=== PATIENT | female | born 1930 | race Caucasian/White ===

== ENCOUNTER 2017-12-28 21:05 | Inpatient (IN) ==
[2017-12-29] MEDS ORDERED: traMADol 50 MG TABLET PO PRN (01:09)
[2017-12-29] MEDS ORDERED: Naloxone 0.4 MG/ML INJ IVP PRN (01:09)
[2017-12-29] MEDS: Acetaminophen 325 MG TABLET PO PRN ×2 (01:27→21:02)
[2017-12-29] MEDS: 0.9 % Sodium Chloride 1,000 ML IVC SCH ×2 (01:28→16:04)
--- NOTE | 2017-12-29 03:03 | Internal Med History&Physical ---
Date of Encounter: 12/28/17 Time of Encounter: 23:25 Assessment and Plan (1) Infection of prosthetic left knee joint Current visit: Yes Status: Suspected 1. Will proceed with CT of LLE to evaluate internal hardware and abscess extension. 2. Consult orthopedics. 3. I called and verified with [facility] that wound cultures have been collected. 4. Will continue IV Vancomycin and Zosyn. 5. Follow cultures and clinically. Qualifiers: Encounter type: initial encounter Qualified Code(s): T84.54XA - Infection and inflammatory reaction due to internal left knee prosthesis, initial encounter (2) Toe infection Current visit: Yes Status: Chronic 1. Follow cultures as obtained at [facility]. 2. Consult Podiatry. (3) Abscess of skin or subcutaneous tissue Current visit: No Status: Acute 1. S/P I&D at [facility]. 2. Follow cultures and continue antibiotics as above. Qualifiers: Site of cutaneous abscess of extremity: lower extremity Laterality: left Qualified Code(s): L02.416 - Cutaneous abscess of left lower limb (4) DVT prophylaxis Current visit: Yes Status: Acute 1. Heparin SQ. Internal Medicine - H&P: HPI Chief complaint: left leg abscess; right infection Admitted From: Emergency Dept Plans for Post Hospital Care: Home History of present illness: Ms. Rosario is a 87 year old female who presents in transfer from [facility] ER for concerns of left leg abscess and right toe injury/ possible osteomyelitis. Patient lives at home with her daughter and has been bedbound for the last 3-4 years. Her daughter and family members help take care of patient, and her daughter noticed a red, warm, and fluctuant area over the left lateral aspect of her left leg just above the knee. This started about 2 days ago, and it became red and warm and tender. She therefore brought her to the ER today where she was found to have an abscess clinically. She had incision and drainage and packing performed in the ER there. According to ER note, she had marisel pus come out of the abscess and it was sent for culture. She also was noted to have a wound along her second and third toes on the right foot with some mild superficial drainage. These were cultured as well. She had imaging performed of her left leg and right foot. Imaging showed some loosening of the screws in her left leg concerning for possible prosthetic device infection. She was then transferred here to [facility] for ongoing care and orthopedic consultation. Upon my assessment of the patient, patient and daughter confirm the above history. Prior to 2 days ago, she did not have any redness or swelling or tenderness along her leg. She has had a chronic irritation of her right toes as noted above. Despite her bedbound state, she has a good quality of life. She has been bedbound since her femur fracture and repair several years ago. She denies any recent fevers, chills, night sweats, vomiting, or diarrhea. According to patient and her daughter, she has been healthy except for bedbound state. She has not seen a physician in over 2 years. Past Med Surg Social Fam HX - Past Medical History Attestation: Yes The following information was validated with the patient. Source: patient, old records reviewed Medical history: dementia, hyperlipidemia, hypertension, valvular heart disease Psychiatric history: depression - Past Surgical History Surgical History: knee replacement, orthopedic, other, MURRAY/BSO - Social History Smoking Status: Never smoker Smokeless Tobacco Status: No Alcohol use: none Drug use: none Current living situation: Home, With Family Activity Level: Bed bound Recent Out of Country Travel Within the Last 8 Weeks: No - Family History Mother Living Status: Brother Living Status: Internal Medicine - H&P: Meds No Known Home Drugs 12/28/17 [History] 3 Allergy/AdvReac Type Severity Reaction Status Date / Time No Known Allergies Allergy Verified 12/28/17 17:55 - Constitutional Constitutional: no chills, no fever(s), no night sweats - EENT Eyes: no blurry vision, no change in vision Ears: no ear pain, no tinnitus Nose, mouth and throat: no sinus pain, no sinus pressure, no sore throat - Cardiovascular Cardiovascular ROS IM: no chest pain, no diaphoresis, no dyspnea, no palpitations, no syncope - Respiratory Respiratory: no cough, no hemoptysis, no chest congestion, no excessive phlegm production, no change in phlegm color - Gastrointestinal Gastrointestinal: no abdominal pain, no diarrhea, no hematemesis, no hematochezia, no melena, no vomiting - Genitourinary Genitourinary: no dysuria, no flank pain, no hematuria - Musculoskeletal Musculoskeletal ROS IM: arthralgias, joint swelling (left knee), limited range of motion - Integumentary Integumentary IM: erythema (left lateral leg just above knee) - Neurological Neurological ROS: no dizziness, no focal weakness, no frequent falls, no headache(s) - Psychiatric Psychiatric: no anxiety, no depression - Endocrine Endocrine IM: no polydipsia, no polyuria - Hematologic/Lymphatic Hematologic/Lymphatic: no easy bruising, no lymphadenopathy - Allergic/Immunologic Allergic/Immunologic: no GI upset with certain foods - Constitutional Vitals: Temp Pulse Resp BP Pulse Ox 98.0 F 105 17 149/79 96 12/28/17 22:47 12/28/17 22:47 12/28/17 22:47 12/28/17 22:47 12/28/17 22:47 General appearance: Present: cooperative, A&O X 3, pleasant, no acute distress, answers questions appropriately - Head Head exam: Present: normal inspection - Eye Eye exam: Present: EOMI, normal appearance, PERRL. Absent: scleral icterus Pupils: Present: normal accommodation - ENT ENT exam: Present: mucous membranes dry, normal exam - Neck Neck exam general surgery: Present: full ROM, supple. Absent: tenderness, nuchal rigidity - Respiratory Respiratory exam: Present: CTAB. Absent: chest wall tenderness, rales, respiratory distress, rhonchi, wheezes - Cardiovascular Cardiovascular exam: Present: RRR, +S1, +S2, systolic murmur (grade 2 -3 ). Absent: diastolic murmur - GI/Abdominal GI/Abdominal exam: Present: normal bowel sounds, soft. Absent: guarding, hepatomegaly, rebound, splenomegaly, tenderness - Extremities Exam Extremities exam: Present: joint swelling (left knee), tenderness (left laterall abscess s/p I&D -- just above knee), warm, radial pulses palpable and symmetrical. Absent: calf tenderness, full ROM (limited ROM left knee) Additional comments: right 2nd/3rd toe with chronic irritation/skin breakdown, and mild drainage - Back Exam Back exam: Absent: CVA tenderness (L), CVA tenderness (R) - Neurological Exam Neurological exam: Present: alert, CN II-XII intact, oriented X3, strengths equal and symetr throughout Additional comments: moves both lower extremities easily but weak and bedbound - Psychiatric Psychiatric exam: Present: normal affect, normal mood - Skin Skin exam: Present: dry, erythema (left leg abscess and right toe wounds as above), warm Internal Med - H&P Results - Labs Labs: I reviewed her labs from [facility] include the following: WBC 8.1 Hemoglobin 9.3 Hematocrit 21.5 Platelets 251 PT 12.2 INR 1.1 PTT 34.5 Sodium 139 Potassium 3.7 Chloride 105 Carbon dioxide 24 BUN 34 Creatinine 1.71 - Diagnostic Studies Other Images Status: image reviewed by me (left femur and knee xrays viewed with notation of reports)
[2017-12-29 04:56] LABS: Basophils % 0.3 %; Eosinophils # 0.1 K/mcL (0.0-0.6); Eosinophils % 0.8 %; Hematocrit 26.3 % (35.3-44.9); Hemoglobin 8.2 g/dL (11.5-15.4); Immature Granulocytes % 0.6 % (0-4); Lymphocytes # 2.1 K/mcL (0.6-4.6); Lymphocytes % 32.4 %; Mean Corpuscular HGB Conc 31.2 g/dL (31.6-35.5); Mean Corpuscular Hemoglobin 29.2 pg (28.0-33.3); Mean Corpuscular Volume 93.6 fL (83.0-100.0); Mean Platelet Volume 9.8 fL (9.4-12.4); Monocytes # 0.5 K/mcL (0.0-1.3); Monocytes % 7.1 %; Neutrophils # 3.8 K/mcL (1.6-8.9); Nucleated Red Blood Cells 0.3 /100 WBC (0); Platelet Count 215 K/mcL (140-400); Red Blood Count 2.81 M/mcL (3.82-4.97); Red Cell Distribution Width 13.6 % (11.5-14.5); Segmented Neutrophils % 58.8 %
[2017-12-29 05:17] LABS: Alanine Aminotransferase < 3 Units/L (7-52); Albumin 3.2 g/dL (3.5-5.7); Alkaline Phosphatase 72 Units/L (34-104); Aspartate Amino Transferase 8 Units/L (13-39); BUN/Creatinine Ratio 21 (6-26); Bilirubin,Total 0.3 mg/dL (0.3-1.0); Blood Urea Nitrogen 32 mg/dL (8-23); Calcium 8.5 mg/dL (8.6-10.3); Carbon Dioxide 22 mEq/L (23-29); Chloride 109 mEq/L (98-107); Globulin 3.1 g/dL (2.4-3.5); Glucose 95 mg/dL (70-105); Magnesium 1.9 mg/dL (1.6-2.6); Osmolality,Calculated 293 (280-300); Potassium 3.5 mEq/L (3.5-5.1); Sodium 138 mEq/L (136-145); Total Protein 6.3 g/dL (6.4-8.9); eGFR For Non-African Americans 32 (> 60)
[2017-12-29] MEDS: *HR* Heparin 5,000 UNIT/ML VIAL SQ SCH ×2 (05:19→16:11)
[2017-12-29 05:45] LABS: INR 1.2; Prothrombin Time 13.2 Seconds (9.4-12.1)
[2017-12-29] MEDS ORDERED: Piperacillin/Tazobactam 3.375 GM in 0.9 % Sodium Chloride Mini Bag 100 ML IVPB SCH (08:00)
--- NOTE | 2017-12-29 14:58 | Internal Med Progress Note ---
Date of Encounter: 12/29/17 Time of Encounter: 14:56 - Assessment and plan (1) Infection of prosthetic left knee joint Current Visit: Yes Status: Suspected Assessment and plan: hx remote left TKA with subsequent periprosthetic fracture and revision. Presented to OSH with red, swollen left knee abscess. S/p I&D at OSH. Left knee CT with possible abscess with small foci of soft tissue gas. WBC 6K, lactic acid normal (1.1 at OSH). Afebrile, does not appear acute or toxic. Continue IV Zosyn, Vanco. Blood cultures drawn at outside hospital pending. Ortho consulted Qualifiers: Encounter type: initial encounter Qualified Code(s): T84.54XA - Infection and inflammatory reaction due to internal left knee prosthesis, initial encounter (2) Acute kidney injury Current Visit: No Status: Acute Assessment and plan: Cr 1.7 at OSH. Baseline unknown. Slowly improving with IV fluids. Monitor repeat renal function closely while on Vanco and Zosyn. (3) Anemia Current Visit: No Status: Chronic Assessment and plan: Hgb 9.1 at OSH. Dropped to 8.2 on arrival. No active bleeding. Baseline Hgb unknown. Possibly dilutional component with IV fluids. Monitor H&H, check occult stool. Qualifiers: Anemia type: unspecified type Qualified Code(s): D64.9 - Anemia, unspecified (4) DVT prophylaxis Current Visit: Yes Status: Acute Assessment and plan: heparin - Subjective Interval history: Seen and examined at bedside. Patient is new to me. Information obtained from chart review and patient report. Says she is sleepy and tired and has some mild pain to left knee but overall stable. No fevers or chills. - Constitutional Vitals: Temp Pulse Resp BP Pulse Ox 97.7 F 82 17 95/54 99 12/29/17 12:22 12/29/17 12:22 12/29/17 12:22 12/29/17 12:22 12/29/17 12:22 General appearance: Present: cooperative, A&O X 3, pleasant, no acute distress, answers questions appropriately - Head Head exam: Present: atraumatic, normocephalic - Eye Eye exam: Present: PERRL, conjuntiva pink, sclera anicteric Pupils: Present: PERRL - Neck Neck exam general surgery: Present: supple, trachea midline. Absent: lymphadenopathy - Respiratory Respiratory exam: Present: CTAB. Absent: accessory muscle use, rales, rhonchi, wheezes - Cardiovascular Cardiovascular exam: Present: RRR, +S1, +S2. Absent: diastolic murmur, gallop, rubs, systolic murmur - GI/Abdominal GI/Abdominal exam: Present: normal bowel sounds, soft, no peritoneal signs. Absent: distended, tenderness - Extremities Exam Extremities exam: Present: warm, radial pulses palpable and symmetrical. Absent : calf tenderness, cyanotic, pedal edema - Neurological Exam Neurological exam: Present: CN II-XII intact, oriented X3, no focal deficits. Absent: pronater drift, facial droop, speech deficit - Skin Skin exam: Present: dry, intact - Expanded Skin Exam Full body front and back image: 1 - s/p I&D site to the left lateral knee. Is an area with surrounding erythema. Draining serosanguineous fluid Internal Medicine: Result - Labs CBC & Chem 7: 12/29/17 04:31 12/29/17 04:31 Labs: Short CBC 12/29/17 Range/Units 04:31 WBC 6.4 (4.3-11.1) K/mcL Hgb 8.2 L (11.5-15.4) g/dL Hct 26.3 L (35.3-44.9) % Plt Count 215 (140-400) K/mcL Neutrophils # 3.8 (1.6-8.9) K/mcL BMP 12/29/17 04:31 Sodium 138 Potassium 3.5 Chloride 109 H Carbon Dioxide 22 L BUN 32 H Creatinine 1.54 H Glucose 95 Calcium 8.5 L Liver Function 12/29/17 Range/Units 04:31 Total Bilirubin 0.3 (0.3-1.0) mg/dL AST 8 L (13-39) Units/L ALT < 3 L (7-52) Units/L Alkaline Phosphatase 72 (34-104) Units/L Albumin 3.2 L (3.5-5.7) g/dL - ABG Interpretation ABG results: PT/INR, D-dimer PT 13.2 Seconds (9.4-12.1) H 12/29/17 04:31 - Impressions Impressions Lower Extremity CT 12/29/17 03:22 IMPRESSION: Significantly limited exam due to streak artifact and lack of IV contrast. There is question of a subcutaneous abscess extending cephalad from the soft tissue defect about the lateral aspect of the knee. There are small foci of soft tissue gas. This potential abscess measures 4.6 x 2.7 x 2.0 cm. Remote distal left femur fracture status post ORIF. No significant bony fusion at the distal aspect of the fracture site. D/ / 12/29/2017 09:48:14 Marcelo Falcon MD / jaya Interpreting Provider: Marcelo Falcon MD Consult Discharge Plan - Plan Referrals: Fernie Melgar Jr, MD [Primary Care Provider] -
[2017-12-29] MEDS: Piperacillin/Tazobactam 3.375 GM in 0.9 % Sodium Chloride Mini Bag 100 ML IVPB SCH (20:45)
[2017-12-30] MEDS: *HR* Heparin 5,000 UNIT/ML VIAL SQ SCH ×2 (05:11→17:41)
[2017-12-30 06:38] LABS: Hematocrit 24.8 % (35.3-44.9); Hemoglobin 7.4 g/dL (11.5-15.4); Mean Corpuscular HGB Conc 29.8 g/dL (31.6-35.5); Mean Corpuscular Hemoglobin 28.5 pg (28.0-33.3); Mean Corpuscular Volume 95.4 fL (83.0-100.0); Platelet Count 190 K/mcL (140-400); Red Cell Distribution Width 13.9 % (11.5-14.5)
[2017-12-30 08:37] LABS: Calcium 8.3 mg/dL (8.6-10.3); Potassium 3.8 mEq/L (3.5-5.1)
[2017-12-30] MEDS: Piperacillin/Tazobactam 3.375 GM in 0.9 % Sodium Chloride Mini Bag 100 ML IVPB SCH ×2 (11:03→20:21)
--- NOTE | 2017-12-30 16:08 | Internal Med Progress Note ---
Date of Encounter: 12/30/17 Time of Encounter: 11:00 - Assessment and plan (1) Infection of prosthetic left knee joint Current Visit: Yes Status: Suspected Assessment and plan: 1 patient was found to have an abscess to left leg she had marisel pus coming out of the abscess which was I&D and sent for culture imaging showed some loosening of screws concerning for possible prosthetic device infection -subcutaneous abscess she is initiated on vancomycin and Zosyn at this time pending sensitivities 2 orthopedics has been consult- I did speak with Dr Wanda escalona, via telephone, he stated that he had reviewed this case with his colleague Dr Alexis who performed the revision surgery , and since the patient was non ambulatory and bedridden, they will forego the risk of surgical procedure at this time and manage medically with long-term antibiotics. 3 consult PICC team for PICC line placement Qualifiers: Encounter type: initial encounter Qualified Code(s): T84.54XA - Infection and inflammatory reaction due to internal left knee prosthesis, initial encounter (2) Toe infection Current Visit: Yes Status: Chronic Assessment and plan: 1 toe has been cultured at [facility] x-ray shows no osteomyelitis 2 did consult podiatry-spoke with Dr. Beth (3) Abscess of skin or subcutaneous tissue Current Visit: No Status: Acute Assessment and plan: Status post I&D at [facility] Continue with current antibiotics pending sensitivities Qualifiers: Site of cutaneous abscess of extremity: lower extremity Laterality: left Qualified Code(s): L02.416 - Cutaneous abscess of left lower limb (4) DVT prophylaxis Current Visit: No Status: Acute Assessment and plan: Heparin subcutaneous - Time Spent With Patient less than 15 minutes - Subjective Interval history: This patient is new to me I reviewed the patient's medical record, I did speak with Dr Wanda escalona, via telephone, he stated that he had reviewed this case with his colleague Dr Alexis who performed the revision surgery , and since the patient was non ambulatory and bedridden, they will forego the risk of surgical procedure at this time and manage medically with long-term antibiotics. I did discuss this as well as the placement of PICC line with the patient she did verbalize understanding. I examined the patient at bedside she does have a reddened second toe on her right foot denies any pain at this time. She is otherwise hemodynamically stable. - Constitutional Vitals: Temp Pulse Resp BP Pulse Ox 98.0 F 89 17 91/60 99 12/30/17 12:02 12/30/17 12:02 12/30/17 12:02 12/30/17 12:02 12/30/17 12:02 General appearance: Present: cooperative, A&O X 3, pleasant, no acute distress, answers questions appropriately - Head Head exam: Present: atraumatic, normocephalic - Eye Eye exam: Present: PERRL, conjuntiva pink, sclera anicteric Pupils: Present: PERRL - Neck Neck exam general surgery: Present: supple, trachea midline. Absent: lymphadenopathy - Respiratory Respiratory exam: Present: CTAB. Absent: accessory muscle use, rales, rhonchi, wheezes - Cardiovascular Cardiovascular exam: Present: RRR, +S1, +S2. Absent: diastolic murmur, gallop, rubs, systolic murmur - GI/Abdominal GI/Abdominal exam: Present: normal bowel sounds, soft, no peritoneal signs. Absent: distended, tenderness - Extremities Exam Extremities exam: Present: warm, radial pulses palpable and symmetrical. Absent : calf tenderness, cyanotic, pedal edema Additional comments: Left knee with swelling I&D site at the distal aspect of her left thigh just above the level of the knee there is packing in the wound serosanguineous fluid drainage No redness noted - Neurological Exam Neurological exam: Present: CN II-XII intact, oriented X3, no focal deficits. Absent: pronater drift, facial droop, speech deficit - Skin Skin exam: Present: dry, intact Internal Medicine: Result - Labs CBC & Chem 7: 12/30/17 06:00 12/30/17 06:00 Labs: Short CBC 12/30/17 Range/Units 06:00 WBC 4.7 (4.3-11.1) K/mcL Hgb 7.4 L (11.5-15.4) g/dL Hct 24.8 L (35.3-44.9) % Plt Count 190 (140-400) K/mcL BMP 12/30/17 06:00 Sodium 141 Potassium 3.8 Chloride 114 H Carbon Dioxide 19 L BUN 32 H Creatinine 1.92 H Glucose 82 Calcium 8.3 L - ABG Interpretation ABG results: PT/INR, D-dimer PT 13.2 Seconds (9.4-12.1) H 12/29/17 04:31 - Impressions Impressions Echocardiogram 12/29/17 01:15 Impressions: LVEF 60-65%. Normal left ventricular size and systolic function. There is evidence of mild diastolic dysfunction of the left ventricle. Normal right ventricular size and function. Moderate aortic stenosis. Mild mitral regurgitation. Left Ventricular Wall Motion: Rest Echo Findings All wall segments showed normal motion. Findings: Study Quality * Technically adequate exam. ECG Findings * Normal sinus rhythm. Left Ventricle * LVEF 60-65%. * Normal LV chamber size, wall thickness and function. * Mild left ventricular diastolic dysfunction. Right Ventricle * Normal right ventricular structure and function. Left Atrium * Normal left atrial size. Right Atrium * Normal right atrial size. Interatrial Septum * Interatrial septum not well evaluated. Aortic Valve * Trileaflet aortic valve. * Moderately calcified aortic valve leaflets. * Moderate aortic stenosis. * Trace aortic regurgitation. Mitral Valve * Normal mitral valve structure. * Mild mitral regurgitation. Tricuspid Valve * Normal tricuspid valve structure. * Mild tricuspid regurgitation. Pulmonic Valve * Pulmonic valve not well visualized. * Trace pulmonic regurgitation. Aorta * Normally sized aortic root. Pericardium * The pericardium appears normal. IVC * Normal IVC dimensions and inspiratory collapse. Consult Discharge Plan - Plan Referrals: Fernie Melgar Jr, MD [Primary Care Provider] -
--- NOTE | 2017-12-30 19:59 | Orthopedics Progress Note ---
Date of Encounter: 12/30/17 Time of Encounter: 19:53 Subjective Principal diagnosis: Infected nonunion left periprosthetic femur fracture Interval history: 12/30/2015. Patient is seen in follow-up. No new complaints. She denies fevers shakes chills etc. Vital signs are stable. Patient is afebrile. Leg is improved. No drainage from incision and drainage site, packing was removed. White blood cell count remains normal, slightly low at 4.7. Hemoglobin has dropped to 7.4. BUN and creatinine are mildly elevated. GFR is about 25. Culture results are not available, the cultures were obtained in the [facility] ER and were just received today by microbiology. Hopefully preliminary report will be available tomorrow. Impression: Infected periprosthetic fracture left distal femur Recommendation: Formal consultation was dictated yesterday, unfortunately it was assigned to the [facility] emergency room visit. I had a long discussion today with the patient and family about the current findings. I also had a discussion about the patient's care with Dr. Kvng Alexis. We are in agreement that a continued conservative course at least initially, is most appropriate. A PICC line was ordered, it will be placed when we get closer to the time of discharge as long as there is IV access. We will need to fine tune the antibiotics once we have an organism and antibiotic sensitivities. We will treat with 6 weeks of IV antibiotics. This will probably followed by suppressive oral dose permanently. We will order baseline sedimentation rate and CRP. Objective Vital signs: Vital Signs Temp Pulse Resp BP Pulse Ox 12/30/17 19:17 98.7 F 100 16 125/81 94 12/30/17 16:24 98.4 F 98 18 111/70 98 12/30/17 12:02 98.0 F 89 17 91/60 99 12/30/17 07:58 97.7 F 88 16 106/71 98 12/30/17 03:08 97.7 F 75 16 94/60 97 12/29/17 22:19 98.3 F 94 15 106/69 97 12/29/17 19:56 91/60 Intake and Output 12/30/17 12/30/17 12/30/17 07:59 15:59 23:59 Intake Total 1350 / 1350 120 / 120 Balance 1350 / 1350 120 / 120 Intake: IV Fluids 1350 / 1350 0.9 % Sodium Chloride 1,000 ML 1000 / 1000 @ 100 mls/hr IVC .Q10H [facility] Rx#: [id number] Zosyn 3.375 GM In 0.9 % Sodium 100 / 100 Chloride (Mini-Bag +) 100 ML @ 25 mls/hr IVPB Q12H [facility] Rx#: [id number] Vancocin 750 MG In 0.9 % Sodium 250 / 250 Chloride 250 ML @ 125 mls/hr IVPB ONCE ONE Rx#:[id number] Oral 120 / 120 Other: Meal Dinner Percent of Meal Consumed 50% Stool Size Moderate Stool Consistency loose soft Stool Color Brown # Urine Diapers 1 1 Weight 59.693 kg Patient Weight 12/30/17 23:59 Weight 59.693 kg - Labs CBC & BMP: 12/30/17 06:00 12/30/17 06:00 Labs: Abnormal lab results RBC 2.60 M/mcL (3.82-4.97) L 12/30/17 06:00 Hgb 7.4 g/dL (11.5-15.4) L 12/30/17 06:00 Hct 24.8 % (35.3-44.9) L 12/30/17 06:00 MCHC 29.8 g/dL (31.6-35.5) L 12/30/17 06:00 Nucleated RBCs/100 WBC 0.3 /100 WBC (0) H 12/29/17 04:31 PT 13.2 Seconds (9.4-12.1) H 12/29/17 04:31 Chloride 114 mEq/L (98-107) H 12/30/17 06:00 Carbon Dioxide 19 mEq/L (23-29) L 12/30/17 06:00 BUN 32 mg/dL (8-23) H 12/30/17 06:00 Creatinine 1.92 mg/dL (0.60-1.20) H 12/30/17 06:00 Est GFR ( Amer) 30 (> 60) L 12/30/17 06:00 Est GFR (Non-Af Amer) 25 (> 60) L 12/30/17 06:00 Calcium 8.3 mg/dL (8.6-10.3) L 12/30/17 06:00 AST 8 Units/L (13-39) L 12/29/17 04:31 ALT < 3 Units/L (7-52) L 12/29/17 04:31 Serum Total Protein 6.3 g/dL (6.4-8.9) L 12/29/17 04:31 Albumin 3.2 g/dL (3.5-5.7) L 12/29/17 04:31 Albumin/Globulin Ratio 1.0 (1.1-2.2) L 12/29/17 04:31 Consult Discharge Plan - Plan Referrals: Fernie Melgar Jr, MD [Primary Care Provider] -
[2017-12-30] MEDS: Acetaminophen 325 MG TABLET PO PRN (20:21)
[2017-12-31 05:23] LABS: Basophils % 0.6 %; Eosinophils # 0.1 K/mcL (0.0-0.6); Eosinophils % 2.3 %; Hematocrit 24.7 % (35.3-44.9); Hemoglobin 7.4 g/dL (11.5-15.4); Immature Granulocytes % 0.4 % (0-4); Mean Corpuscular Hemoglobin 28.5 pg (28.0-33.3); Mean Platelet Volume 9.9 fL (9.4-12.4); Monocytes # 0.4 K/mcL (0.0-1.3); Monocytes % 8.1 %; Neutrophils # 2.3 K/mcL (1.6-8.9); Platelet Count 187 K/mcL (140-400); Red Cell Distribution Width 13.7 % (11.5-14.5); Segmented Neutrophils % 46.6 %
[2017-12-31] MEDS: *HR* Heparin 5,000 UNIT/ML VIAL SQ SCH ×2 (05:54→17:38)
[2017-12-31 06:00] LABS: Calcium 8.7 mg/dL (8.6-10.3); Potassium 4.1 mEq/L (3.5-5.1)
[2017-12-31] MEDS ORDERED: Vancomycin 500 MG in 0.9 % Sodium Chloride Mini Bag 100 ML IVPB ONE (06:00)
[2017-12-31] MEDS: Lactobacillus 1 EACH CAP.SPRINK PO SCH (08:49)
[2017-12-31] MEDS: Piperacillin/Tazobactam 3.375 GM in 0.9 % Sodium Chloride Mini Bag 100 ML IVPB SCH ×2 (08:49→19:30)
--- NOTE | 2017-12-31 13:18 | Podiatry Consult Note ---
Date of Encounter: 12/31/17 Time of Encounter: 12:00 Assessment and Plan (1) Onychomycosis Current visit: Yes Status: Acute Severe onychomycosis noted to nails #2 through #5 bilaterally with carolina horn growth due to length. Patient cannot recall when nails were last trimmed Nails curve is causing ulceration to toe #2 of right foot Will plan for bedside debridement of nails tomorrow. Explained to patient. Verbalized understanding (2) Toe infection Current visit: Yes Status: Chronic There is a small superficial ulceration to the dorsal aspect of the IP joint of the right foot 0.2cmx0.2cm and to the lateral aspect of toe near the DIP joint 0.3cmx0.2cm . The distal wound is directly related to curvature of toe nail #3 of right foot. There is no current drainage noted to wound of the IP joint. Scant yellow slough tissue noted to wound. Minimal surrounding erythema. No warmth. No fluctuance. There is pain with palpation. No concern of abscess formation. Will plan for debridement of nails tomorrow to remove offending nail #3 from skin of toe #2 Continue current antibiotics, per notes, there was drainage noted to ulceration of toe #2 which was cultured at [place] - titrate antibiotics as needed if any bacterial growth is noted Will continue to monitor. History of Present Illness HPI: Ms. Rosario is a 87 year old female with minimal known health history. Patient is bedbound at home following a femur fracture. Patient has not been seen by a doctor in over 2 years. Patient was admitted for evaluation of possible infection of prosthetic implant of left knee. It was also reported by daughter that there was irritation to toe #2 of right foot. Patient states she is unsure how long sore has been to her toe. States she has pain to toe intermittently. Cultures were obtained from toe at [place] per reports. Xrays were obtained and negative for OM. Patient is currently receiving IV antibiotics for treatment of left knee infection. Patient states she is unsure if she has ever had professional nail care and cannot recall last time nails were trimmed. Past Med Surg Social Fam HX - Past Medical History Medical history: dementia, hyperlipidemia, hypertension, valvular heart disease Psychiatric history: depression - Past Surgical History Surgical History: knee replacement, orthopedic, other, MURRAY/BSO - Social History Smoking Status: Never smoker Smokeless Tobacco Status: No Alcohol use: none Drug use: none - Family History Mother Living Status: Brother Living Status: Medications and Allergies Acetaminophen [Tylenol] 500 mg PO Q6HR PRN 12/29/17 [History] 3 Allergy/AdvReac Type Severity Reaction Status Date / Time vancomycin AdvReac Redness of Verified 12/29/17 16:29 Skin All Systems Reviewed: The remainder of the systems were reviewed and are negative Physical Exam - Constitutional Vitals: Temp Pulse Resp BP Pulse Ox 97.6 F 71 15 100/55 96 12/31/17 11:21 12/31/17 11:21 12/31/17 11:21 12/31/17 11:21 12/31/17 11:21 Exam: Awake alert and oriented Pulses palpable DP/PT Warm toes to tibia Cap refill <3 seconds Sensation intact with light touch No calf pain with manual compression Poor hygiene noted, severe dry skin without evidence of cracking or ulceration Debris noted between and under toes and dry crusting skin to plantar aspect of feet Severe onychomycosis noted to nails #1 through #5 bilaterally with carolina horn curve of nails due to length Nail #1 right is causing pressure to skin of toe #2 and nail #3 is causing pressure and skin breakdown of toe #2. There is a small superficial ulceration to the dorsal aspect of the IP joint of the right foot 0.2cmx0.2cm , once slough tissue removed there is a very small area of bone exposure at the level of the IP joint. This wound appears related to pressure being caused by nail #1 as well as severe arthritic rigidity of toes #1 #2 #3 There is a second ulceration to the lateral aspect of toe near the DIP joint 0.3cmx0.2cm . The distal wound is directly related to curvature of toe nail #3 of right foot. There is no current drainage noted to wound of the IP joint. Scant yellow slough tissue noted to wound. Minimal surrounding erythema. No warmth. No fluctuance. There is pain with palpation. No concern of abscess formation. Results - Labs Result Diagrams: 01/01/18 04:50 01/01/18 04:50 Labs: Abnormal lab results RBC 2.60 M/mcL (3.82-4.97) L 12/31/17 04:41 Hgb 7.4 g/dL (11.5-15.4) L 12/31/17 04:41 Hct 24.7 % (35.3-44.9) L 12/31/17 04:41 MCHC 30.0 g/dL (31.6-35.5) L 12/31/17 04:41 Nucleated RBCs/100 WBC 0.3 /100 WBC (0) H 12/29/17 04:31 ESR 43 mm/hr (0-15) H 12/30/17 06:00 PT 13.2 Seconds (9.4-12.1) H 12/29/17 04:31 Chloride 112 mEq/L (98-107) H 12/31/17 04:41 Carbon Dioxide 22 mEq/L (23-29) L 12/31/17 04:41 BUN 30 mg/dL (8-23) H 12/31/17 04:41 Creatinine 1.84 mg/dL (0.60-1.20) H 12/31/17 04:41 Est GFR ( Amer) 31 (> 60) L 12/31/17 04:41 Est GFR (Non-Af Amer) 26 (> 60) L 12/31/17 04:41 AST 8 Units/L (13-39) L 12/29/17 04:31 ALT < 3 Units/L (7-52) L 12/29/17 04:31 C-Reactive Protein 51 mg/L (Less than 10) H 12/30/17 19:17 Serum Total Protein 6.3 g/dL (6.4-8.9) L 12/29/17 04:31 Albumin 3.2 g/dL (3.5-5.7) L 12/29/17 04:31 Albumin/Globulin Ratio 1.0 (1.1-2.2) L 12/29/17 04:31 H & H 12/31/17 Range/Units 04:41 Hgb 7.4 L (11.5-15.4) g/dL Hct 24.7 L (35.3-44.9) % All other labs normal. Consult Discharge Plan - Plan Referrals: Fernie Melgar Jr, MD [Primary Care Provider] -
--- NOTE | 2017-12-31 18:25 | Electrocardiograph Report ---
[address] [address] Test Date: 2017-12-29 Pat Name: Genoveva Rosario Department: 113 Room: 3A24 Gender: F Mail Order Biller: : 1930 Requested By: Hesham Whaley Order Number: [id number] Reading MD: Abraham Norton Measurements Intervals [place] Rate: 93 P: 48 TN: 183 QRS: 7 QRSD: 88 T: 26 QT: 355 QTc: 405 Interpretive Statements SINUS RHYTHM Electronically Signed On 12-31-2017 18:23:49 EST by Abraham Norton
--- NOTE | 2017-12-31 20:14 | Internal Med Progress Note ---
Date of Encounter: 12/31/17 Time of Encounter: 20:12 - Assessment and plan (1) Infection of prosthetic left knee joint Current Visit: Yes Status: Suspected Assessment and plan: Had abscess s/p I&D. Orthopedics following; appreciate recommendations - forego revision surgery due to risks and manage medically at this time with long -term antibiotics. Continue IV vancomycin and IV zosyn. Preliminary wound culture grew Staph aureus; will d/c zosyn when final. Will need 6 weeks of IV antibiotics, then chronic suppressive antibiotic therapy. PICC team consulted for PICC placement. Repeat CBC in AM. Qualifiers: Encounter type: initial encounter Qualified Code(s): T84.54XA - Infection and inflammatory reaction due to internal left knee prosthesis, initial encounter (2) Toe infection Current Visit: Yes Status: Chronic Assessment and plan: Cultured in past with no osteomyelitis. Podiatry consulted; appreciate input - planning debridement tomorrow. Continue IV vancomycin and IV zosyn. (3) Onychomycosis Current Visit: Yes Status: Acute Assessment and plan: Podiatry consulted; appreciate input - debridement planned for tomorrow. (4) Acute kidney injury Current Visit: Yes Status: Acute Assessment and plan: Cr = 1.84. Trending down. Encourage PO hydration. Recheck BMP in AM. (5) DVT prophylaxis Current Visit: Yes Status: Acute Assessment and plan: Continue subcutaneous heparin. - Time Spent With Patient less than 15 minutes - Subjective Interval history: Patient had no acute events overnight. She has no complaints this AM. - Constitutional Vitals: Temp Pulse Resp BP Pulse Ox 98.7 F 92 16 144/83 100 12/31/17 19:45 12/31/17 19:45 12/31/17 19:45 12/31/17 19:45 12/31/17 19:45 General appearance: Present: cooperative, A&O X 3, pleasant, no acute distress, answers questions appropriately - Respiratory Respiratory exam: Present: CTAB. Absent: rales, rhonchi, wheezes Additional comments: Normal WOB - Cardiovascular Cardiovascular exam: Present: RRR, +S1, +S2. Absent: diastolic murmur, gallop, rubs, systolic murmur Additional comments: No BLE edema except left knee with mild-moderate edema at I&D site. - GI/Abdominal GI/Abdominal exam: Present: normal bowel sounds, soft. Absent: distended, hepatomegaly, mass, splenomegaly, tenderness - Extremities Exam Additional comments: LLE with edema at I&D site extending from distal thigh to upper knee; no erythema; mild TTP. Wound with packing with serosanguinous drainage. Small superficial ulcerations on right second toe with mild surrounding erythema; mild TTP. - Psychiatric Psychiatric exam: Present: normal affect, normal mood. Absent: anxious, depressed - Skin Skin exam: Present: dry, intact. Absent: cyanosis Internal Medicine: Result - Labs CBC & Chem 7: 12/31/17 04:41 12/31/17 04:41 Labs: Short CBC 12/31/17 Range/Units 04:41 WBC 4.8 (4.3-11.1) K/mcL Hgb 7.4 L (11.5-15.4) g/dL Hct 24.7 L (35.3-44.9) % Plt Count 187 (140-400) K/mcL Neutrophils # 2.3 (1.6-8.9) K/mcL BMP 12/31/17 04:41 Sodium 141 Potassium 4.1 Chloride 112 H Carbon Dioxide 22 L BUN 30 H Creatinine 1.84 H Glucose 86 Calcium 8.7 - ABG Interpretation ABG results: PT/INR, D-dimer PT 13.2 Seconds (9.4-12.1) H 12/29/17 04:31 Consult Discharge Plan - Plan Referrals: Fernie Melgar Jr, MD [Primary Care Provider] -
--- NOTE | 2017-12-31 20:33 | Orthopedics Progress Note ---
Date of Encounter: 12/31/17 Time of Encounter: 20:32 Subjective Principal diagnosis: Infected nonunion left periprosthetic femur fracture Interval history: 12/30/2015. Patient is seen in follow-up. No new complaints. She denies fevers shakes chills etc. Vital signs are stable. Patient is afebrile. Leg is improved. No drainage from incision and drainage site, packing was removed. White blood cell count remains normal, slightly low at 4.7. Hemoglobin has dropped to 7.4. BUN and creatinine are mildly elevated. GFR is about 25. Culture results are not available, the cultures were [place] [facility] and were just received today by microbiology. Hopefully preliminary report will be available tomorrow. Impression: Infected periprosthetic fracture left distal femur Recommendation: Formal consultation was dictated yesterday, unfortunately it was assigned to the [facility] emergency room visit. I had a long discussion today with the patient and family about the current findings. I also had a discussion about the patient's care with Dr. Kvng Alexis. We are in agreement that a continued conservative course at least initially, is most appropriate. A PICC line was ordered, it will be placed when we get closer to the time of discharge as long as there is IV access. We will need to fine tune the antibiotics once we have an organism and antibiotic sensitivities. We will treat with 6 weeks of IV antibiotics. This will probably followed by suppressive oral dose permanently. We will order baseline sedimentation rate and CRP. 12/31/2017. Preliminary microbiology cultures reveal staph aureus. Final ID and sensitivity is pending. We will continue with current antibiotics until definitive identification and culture sensitivities are available to fine tune the antibiotics. Objective Vital signs: Vital Signs Temp Pulse Resp BP Pulse Ox 12/31/17 19:45 98.7 F 92 16 144/83 100 12/31/17 15:31 97.8 F 75 15 126/80 94 12/31/17 11:21 97.6 F 71 15 100/55 96 12/31/17 08:07 98.4 F 71 15 116/69 96 12/31/17 04:56 97.5 F L 76 14 115/77 98 12/30/17 23:08 98.1 F 80 15 102/68 95 Intake and Output 12/31/17 12/31/17 12/31/17 07:59 15:59 23:59 Intake Total 100 / 100 560 / 560 60 / 60 Output Total 0 / 0 Balance 100 / 100 560 / 560 60 / 60 Intake: IV Fluids 100 / 100 200 / 200 Zosyn 3.375 GM In 0.9 % Sodium 100 / 100 100 / 100 Chloride (Mini-Bag +) 100 ML @ 25 mls/hr IVPB Q12H JUAN MANUEL Rx#: [id number] Vancocin 500 MG In 0.9 % Sodium 100 / 100 Chloride (Mini-Bag +) 100 ML @ 50 mls/hr IVPB 0600 ONE Rx#: [id number] Oral 0 / 0 360 / 360 60 / 60 Output: Urine 0 / 0 Other: Meal Lunch Percent of Meal Consumed 100% # Urine Diapers 1 1 # Bowel Movements 1 - Labs CBC & BMP: 12/31/17 04:41 12/31/17 04:41 Labs: Abnormal lab results RBC 2.60 M/mcL (3.82-4.97) L 12/31/17 04:41 Hgb 7.4 g/dL (11.5-15.4) L 12/31/17 04:41 Hct 24.7 % (35.3-44.9) L 12/31/17 04:41 MCHC 30.0 g/dL (31.6-35.5) L 12/31/17 04:41 Nucleated RBCs/100 WBC 0.3 /100 WBC (0) H 12/29/17 04:31 ESR 43 mm/hr (0-15) H 12/30/17 06:00 PT 13.2 Seconds (9.4-12.1) H 12/29/17 04:31 Chloride 112 mEq/L (98-107) H 12/31/17 04:41 Carbon Dioxide 22 mEq/L (23-29) L 12/31/17 04:41 BUN 30 mg/dL (8-23) H 12/31/17 04:41 Creatinine 1.84 mg/dL (0.60-1.20) H 12/31/17 04:41 Est GFR ( Amer) 31 (> 60) L 12/31/17 04:41 Est GFR (Non-Af Amer) 26 (> 60) L 12/31/17 04:41 AST 8 Units/L (13-39) L 12/29/17 04:31 ALT < 3 Units/L (7-52) L 12/29/17 04:31 C-Reactive Protein 51 mg/L (Less than 10) H 12/30/17 19:17 Serum Total Protein 6.3 g/dL (6.4-8.9) L 12/29/17 04:31 Albumin 3.2 g/dL (3.5-5.7) L 12/29/17 04:31 Albumin/Globulin Ratio 1.0 (1.1-2.2) L 12/29/17 04:31 Consult Discharge Plan - Plan Referrals: Fernie Melgar Jr, MD [Primary Care Provider] -
[2017-12-31] MEDS: Acetaminophen 325 MG TABLET PO PRN (21:46)
[2018-01-01 05:59] LABS: Basophils % 0.5 %; Eosinophils # 0.1 K/mcL (0.0-0.6); Eosinophils % 2.7 %; Hematocrit 24.9 % (35.3-44.9); Hemoglobin 7.5 g/dL (11.5-15.4); Immature Granulocytes % 0.2 % (0-4); Lymphocytes # 1.7 K/mcL (0.6-4.6); Lymphocytes % 38.5 %; Mean Corpuscular HGB Conc 30.1 g/dL (31.6-35.5); Mean Corpuscular Hemoglobin 28.6 pg (28.0-33.3); Monocytes # 0.3 K/mcL (0.0-1.3); Monocytes % 7.2 %; Neutrophils # 2.3 K/mcL (1.6-8.9); Platelet Count 207 K/mcL (140-400); Red Blood Count 2.62 M/mcL (3.82-4.97); Red Cell Distribution Width 13.9 % (11.5-14.5); Segmented Neutrophils % 50.9 %
[2018-01-01] MEDS: *HR* Heparin 5,000 UNIT/ML VIAL SQ SCH ×2 (06:01→18:24)
[2018-01-01 06:18] LABS: Calcium 8.6 mg/dL (8.6-10.3); Potassium 3.7 mEq/L (3.5-5.1)
[2018-01-01] MEDS: Lactobacillus 1 EACH CAP.SPRINK PO SCH (08:59)
[2018-01-01] MEDS ORDERED: Vancomycin 500 MG in 0.9 % Sodium Chloride Mini Bag 100 ML IVPB ONE (09:00)
[2018-01-01] MEDS ORDERED: Piperacillin/Tazobactam 3.375 GM in 0.9 % Sodium Chloride Mini Bag 100 ML IVPB SCH (11:00)
[2018-01-01] MEDS: Piperacillin/Tazobactam 3.375 GM in 0.9 % Sodium Chloride Mini Bag 100 ML IVPB SCH (11:36)
[2018-01-01] MEDS: 0.9 % Sodium Chloride 1,000 ML IV SCH ×2 (14:10→22:38)
--- NOTE | 2018-01-01 16:37 | Podiatry Progress Note ---
Date of Encounter: 01/01/18 Time of Encounter: 12:00 - Assessment and Plan (1) Onychomycosis Current Visit: Yes Status: Acute Severe onychomycosis noted to nails #1 through #5 bilaterally with carolina horn growth due to length. Formal nail debridement was performed at bedside using nail nippers and grinder dresser to debulk all nails, remove offending nail fragments and shorten Patient tolerated well There is noted irritation of the skin at the proximal nail corners of toe #1 right s/p debridment due to overlying fungused nail on top of skin. No appearance of infection Patient will need to follow up in podiatry clinic 1-2 weeks after discharge for further monitoring and followed nail care Explained to patient. Verbalized understanding (2) Toe infection Current Visit: Yes Status: Chronic There is a small superficial ulceration to the dorsal aspect of the IP joint of the right foot 0.2cmx0.2cm , once slough tissue removed there is a very small area of bone exposure at the level of the IP joint. This wound appears related to pressure being caused by nail #1 as well as severe arthritic rigidity of toes #1 #2 #3 There is a second ulceration to the lateral aspect of toe near the DIP joint 0.3cmx0.2cm . The distal wound is directly related to curvature of toe nail #3 of right foot. There is no current drainage noted to wound of the IP joint. Scant yellow slough tissue noted to wound. Minimal surrounding erythema. No warmth. No fluctuance. There is pain with palpation. No concern of abscess formation. Offending nail fragments have been removed and should promote healing of skin Patient will need toe spacers placed between toes #1 and #2 right foot to assist in pressure relief Continue current antibiotics, per notes, there was drainage noted to ulceration of toe #2 which was cultured at [place] - titrate antibiotics as needed if any bacterial growth is noted - no results have been noted as of yet WBC 4.4 and afebrile. Patient will need to be seen in podiatry clinic in 1-2 weeks after discharge for continued monitoring and care Apply adaptic and 4x4 to toe for protection and to promote healing. Will need replaced once daily. Will continue to monitor. Subjective Principal diagnosis: Infected nonunion left periprosthetic femur fracture Interval history: Ms. Rosario is a 87 year old female admitted to infection of left knee. It was reported by daughter that there was irritation to toe #2 of right foot. Patient states she is unsure how long sore has been to her toe. States she has pain to toe intermittently. Cultures were obtained from toe at [place] per reports. Xrays were obtained and negative for OM. Patient is currently receiving IV antibiotics for treatment of left knee infection. Patient states she is unsure if she has ever had professional nail care and cannot recall last time nails were trimmed. Spoke with patient yesterday, planned nail debridement today. Objective - Vital Signs Vital Signs: Vital Signs Temp Pulse Resp BP Pulse Ox 01/01/18 14:46 97.9 F 79 18 117/75 99 01/01/18 12:02 98.2 F 83 15 114/73 100 01/01/18 05:52 97.8 F 71 14 117/70 98 12/31/17 19:45 98.7 F 92 16 144/83 100 Intake and Output 01/01/18 01/01/18 01/01/18 07:59 15:59 23:59 Intake Total 0 / 0 220 / 220 Output Total 0 / 0 Balance 0 / 0 220 / 220 Intake: IV Fluids 100 / 100 Vancocin 500 MG In 0.9 % Sodium 100 / 100 Chloride (Mini-Bag +) 100 ML @ 100 mls/hr IVPB ONCE ONE Rx#: [id number] Oral 0 / 0 120 / 120 Output: Urine 0 / 0 Other: Meal Lunch Percent of Meal Consumed 75% # Urine Diapers 2 1 - Exam Exam: Awake alert and oriented Pulses palpable DP/PT Warm toes to tibia Cap refill <3 seconds Sensation intact with light touch No calf pain with manual compression Poor hygiene noted, severe dry skin without evidence of cracking or ulceration Debris noted between and under toes and dry crusting skin to plantar aspect of feet Severe onychomycosis noted to nails #1 through #5 bilaterally with carolina horn curve of nails due to length Nail #1 right is causing pressure to skin of toe #2 and nail #3 is causing pressure and skin breakdown of toe #2. There is a small superficial ulceration to the dorsal aspect of the IP joint of the right foot 0.2cmx0.2cm , once slough tissue removed there is a very small area of bone exposure at the level of the IP joint. This wound appears related to pressure being caused by nail #1 as well as severe arthritic rigidity of toes #1 #2 #3 There is a second ulceration to the lateral aspect of toe near the DIP joint 0.3cmx0.2cm . The distal wound is directly related to curvature of toe nail #3 of right foot. There is no current drainage noted to wound of the IP joint. Scant yellow slough tissue noted to wound. Minimal surrounding erythema. No warmth. No fluctuance. There is pain with palpation. No concern of abscess formation. - Lab Result Diagrams: 01/01/18 04:50 01/01/18 04:50 Labs: Abnormal lab results RBC 2.62 M/mcL (3.82-4.97) L 01/01/18 04:50 Hgb 7.5 g/dL (11.5-15.4) L 01/01/18 04:50 Hct 24.9 % (35.3-44.9) L 01/01/18 04:50 MCHC 30.1 g/dL (31.6-35.5) L 01/01/18 04:50 Nucleated RBCs/100 WBC 0.3 /100 WBC (0) H 12/29/17 04:31 ESR 43 mm/hr (0-15) H 12/30/17 06:00 PT 13.2 Seconds (9.4-12.1) H 12/29/17 04:31 Chloride 114 mEq/L (98-107) H 01/01/18 04:50 Carbon Dioxide 21 mEq/L (23-29) L 01/01/18 04:50 BUN 27 mg/dL (8-23) H 01/01/18 04:50 Creatinine 1.86 mg/dL (0.60-1.20) H 01/01/18 04:50 Est GFR ( Amer) 31 (> 60) L 01/01/18 04:50 Est GFR (Non-Af Amer) 26 (> 60) L 01/01/18 04:50 AST 8 Units/L (13-39) L 12/29/17 04:31 ALT < 3 Units/L (7-52) L 12/29/17 04:31 C-Reactive Protein 51 mg/L (Less than 10) H 12/30/17 19:17 Serum Total Protein 6.3 g/dL (6.4-8.9) L 12/29/17 04:31 Albumin 3.2 g/dL (3.5-5.7) L 12/29/17 04:31 Albumin/Globulin Ratio 1.0 (1.1-2.2) L 12/29/17 04:31 Consult Discharge Plan - Plan Referrals: Fernie Melgar Jr, MD [Primary Care Provider] -
--- NOTE | 2018-01-01 19:27 | Internal Med Progress Note ---
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 Orthopedics following; appreciate recommendations - forego revision surgery due to risks and manage medically at this time with long -term antibiotics. Final wound culture grew Staph aureus. Continue IV vancomycin. Discontinue IV zosyn. Will need 6 weeks of IV antibiotics, then chronic suppressive antibiotic therapy. Consider discharge home on PO ancef; will run by orthopedics. Accepted at [place]; consider discharge tomorrow if renal function continues to improve. PICC team consulted for PICC placement. Qualifiers: Encounter type: initial encounter Qualified Code(s): T84.54XA - Infection and inflammatory reaction due to internal left knee prosthesis, initial encounter (2) Toe infection Current Visit: Yes Status: Chronic Assessment and plan: Cultured in past with no osteomyelitis. Podiatry consulted; appreciate input - debridement performed today without complications. Continue IV vancomycin. Will need follow up with podiatry as outpatient in 1-2 weeks after discharge. (3) Onychomycosis Current Visit: Yes Status: Acute Assessment and plan: Podiatry consulted; appreciate input - debridement completed today as per above. Will need follow up with podiatry as outpatient in 1-2 weeks after discharge. (4) Acute kidney injury Current Visit: Yes Status: Acute Assessment and plan: Cr = 1.86. Holding steady. No history of CKD. Encourage PO hydration. Start IVF. Recheck BMP in AM. (5) DVT prophylaxis Current Visit: Yes Status: Acute Assessment and plan: Continue subcutaneous heparin. - Time Spent With Patient less than 15 minutes - Subjective Interval history: Patient had no acute events overnight. She states that debridement by podiatry went well. She denies any pain. Encouraged PO hydration, but she states that she does not like to drink water. She has no complaints this AM. - Constitutional Vitals: Temp Pulse Resp BP Pulse Ox 97.9 F 79 18 117/75 99 01/01/18 14:46 01/01/18 14:46 01/01/18 14:46 01/01/18 14:46 01/01/18 14:46 General appearance: Present: cooperative, A&O X 3, no acute distress, answers questions appropriately - Respiratory Respiratory exam: Present: CTAB. Absent: accessory muscle use, rales, rhonchi, wheezes Additional comments: Normal WOB - Cardiovascular Cardiovascular exam: Present: RRR, +S1, +S2. Absent: diastolic murmur, gallop, rubs, systolic murmur Additional comments: No BLE edema except left knee with mild-moderate edema at I&D site. - GI/Abdominal GI/Abdominal exam: Present: normal bowel sounds, soft. Absent: distended, hepatomegaly, mass, splenomegaly, tenderness - Extremities Exam Additional comments: LLE with edema at I&D site extending from distal thigh to upper knee; no erythema; mild TTP. Wound with packing with serosanguinous drainage. Small superficial ulcerations on right second toe with mild surrounding erythema; mild TTP. - Psychiatric Psychiatric exam: Present: normal affect, normal mood. Absent: anxious, depressed - Skin Skin exam: Present: dry, warm. Absent: cyanosis Internal Medicine: Result - Labs CBC & Chem 7: 01/01/18 04:50 01/01/18 04:50 Labs: Short CBC 01/01/18 Range/Units 04:50 WBC 4.4 (4.3-11.1) K/mcL Hgb 7.5 L (11.5-15.4) g/dL Hct 24.9 L (35.3-44.9) % Plt Count 207 (140-400) K/mcL Neutrophils # 2.3 (1.6-8.9) K/mcL BMP 01/01/18 04:50 Sodium 140 Potassium 3.7 Chloride 114 H Carbon Dioxide 21 L BUN 27 H Creatinine 1.86 H Glucose 89 Calcium 8.6 - ABG Interpretation ABG results: PT/INR, D-dimer PT 13.2 Seconds (9.4-12.1) H 12/29/17 04:31 Consult Discharge Plan - Plan Referrals: Fernie Melgar Jr, MD [Primary Care Provider] -
[2018-01-01] MEDS: Acetaminophen 325 MG TABLET PO PRN (20:34)
[2018-01-02] MEDS: *HR* Heparin 5,000 UNIT/ML VIAL SQ SCH ×2 (05:12→18:16)
[2018-01-02 05:38] LABS: Calcium 8.4 mg/dL (8.6-10.3); Potassium 3.3 mEq/L (3.5-5.1)
[2018-01-02] MEDS: 0.9 % Sodium Chloride 1,000 ML IV SCH ×2 (06:51→15:16)
[2018-01-02] MEDS: Lactobacillus 1 EACH CAP.SPRINK PO SCH (08:07)
[2018-01-02] MEDS ORDERED: Lidocaine -MPF 1% 5 ML AMPUL INFILT ONE (12:41)
[2018-01-02] MEDS ORDERED: ceFAZolin 1,000 MG in Water for inj. (sterile) 10 ML IVP SCH (13:00)
[2018-01-02 15:16] LABS: Calcium 8.3 mg/dL (8.6-10.3); Potassium 4.1 mEq/L (3.5-5.1)
--- NOTE | 2018-01-02 15:27 | Discharge Summary ---
- NOTES TO OUTPATIENT PROVIDER Notes to Outpatient Provider: Repeat BMP in 2-3 days. Orders not resulted at time of discharge: Pending orders 12/29/17 15:34 Occult Blood,Stool [BF] Stat Date of Encounter: 01/02/18 Time of Encounter: 15:23 - Discharge Diagnosis (1) Infection of prosthetic left knee joint Priority: Primary Status: Acute Qualifiers: Encounter type: initial encounter Qualified Code(s): T84.54XA - Infection and inflammatory reaction due to internal left knee prosthesis, initial encounter (2) Toe infection Priority: Secondary Status: Chronic (3) Onychomycosis Priority: Secondary Status: Chronic (4) Acute kidney injury Priority: Secondary Status: Acute (5) DVT prophylaxis Priority: Secondary Status: Acute Hospital course: Ms. Rosario is a 87 year old female admitted with infection of left prosthetic knee joint. Orthopedic surgery was consulted and recommended forgoing revision surgery due to risks and managing medically at this time with long-term antibiotics. Final wound culture grew staph aureus. She was initially on IV vancomycin and IV zosyn. IV zosyn was discontinued after final culture. She will be discharged to [facility] on IV ancef 1 gram Q12H for 37 more days (total 6 weeks). PICC was placed prior to discharge. She will likely need suppressive antibiotic therapy after she completes ancef course; will defer to orthopedics for this. She had a toe infection and onychomycosis during this hospitalization that was treated by podiatry with debridement. She had acute kidney injury which improved with IVF. Patient has met maximum benefit of this hospitalization and will be discharged to [facility] in stable condition. Discharge discussed with: patient, nurse, case management - Time Spent with Patient Total time spent providing and/or coordinating discharge services: Greater than 30 minutes - Discharge Medications Prescriptions: CeFAZolin Syr 1,000MG/10 ML [Ancef Syringe 1,000 MG/10 ML] 1,000 mg IVPB Q12H 37 Days #37 syringe Home Medications: RX: Acetaminophen [Tylenol] 500 mg PO Q6HR PRN 12/29/17 [History] CeFAZolin Syr 1,000MG/10 ML [Ancef Syringe 1,000 MG/10 ML] 1,000 mg IVPB Q12H 37 Days #37 syringe 01/02/18 [Rx] Allergies/Adverse Reactions: 3 Allergy/AdvReac Type Severity Reaction Status Date / Time vancomycin AdvReac Redness of Verified 12/29/17 16:29 Skin Date of admission: 12/29/17 01:10 Primary care physician: Fernie Melgar Jr, MD Consults: 12/29/17 01:13 Consult to Physician [CONS] Routine Consulting Provider: Florentino Muñoz Reason for Consult: left leg abscess; infected prosthesis Call Completed: No 12/30/17 16:37 Consult to Podiatry [CONS] Routine Consulting Provider: [facility] Reason for Consult: R second toe red and inflammed, 3rd Toenail embedded into 2 toe Time Notified: 16:39 Call Completed: Yes 12/31/17 08:55 Consult to Pest Locator [CONS] Routine Reason for SW Consult: DC planning - 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 Absent: accessory muscle use, rales, rhonchi, wheezes Additional comments: Normal WOB - Cardiovascular Cardiovascular exam: Present: RRR, +S1, +S2. Absent: diastolic murmur, gallop, rubs, systolic murmur Additional comments: No BLE edema except left knee with mild-moderate edema at I&D site. - GI/Abdominal GI/Abdominal exam: Present: normal bowel sounds, soft. Absent: distended, hepatomegaly, mass, splenomegaly, tenderness - Extremities Exam Additional comments: LLE with edema at I&D site extending from distal thigh to upper knee; no erythema; mild TTP. Wound with packing with serosanguinous drainage. Small superficial ulcerations on right second toe with mild surrounding erythema; mild TTP. - Psychiatric Psychiatric exam: Present: normal affect, normal mood. Absent: anxious, depressed - Skin Skin exam: Present: dry, warm. Absent: cyanosis - Patient Status Disposition: Transfer Inpatient Rehab Fac Condition: Good Overall status at discharge: patient is progressing back to baseline - Discharge Instructions Follow Up With: Fernie Melgar Jr, MD [Primary Care Provider] - - Diet and Activity Activity: as per physical therapy Diet: regular diet
--- NOTE | 2018-01-02 16:48 | Physician Discharge Referral ---
ExtendedCare Referral Info Transfer To: [facility] Institutional Level of Care: Skilled - Diagnosis (1) Infection of prosthetic left knee joint Priority: Primary Status: Acute (2) Toe infection Priority: Secondary Status: Chronic (3) Onychomycosis Priority: Secondary Status: Chronic (4) Acute kidney injury Priority: Secondary Status: Acute (5) DVT prophylaxis Priority: Secondary Status: Acute Prognosis: Fair Aware of Diagnosis: Patient Aware of Prognosis: Patient - Transfer Medications Prescriptions: CeFAZolin Syr 1,000MG/10 ML [Ancef Syringe 1,000 MG/10 ML] 1,000 mg IVPB Q12H 37 Days #37 syringe Home Medications: Acetaminophen [Tylenol] 500 mg PO Q6HR PRN 12/29/17 [History] CeFAZolin Syr 1,000MG/10 ML [Ancef Syringe 1,000 MG/10 ML] 1,000 mg IVPB Q12H 37 Days #37 syringe 01/02/18 [Rx] Allergies/Adverse Reactions: 3 Allergy/AdvReac Type Severity Reaction Status Date / Time vancomycin AdvReac Redness of Verified 12/29/17 16:29 Skin - Respiratory Orders Smoking Cessation: Smoking cessation has been advised. For more information, call the Built In Tobacco Quit Line at 2-534-BFIFNOW. - Advance Directives Code Status: Full Code - Mobility Orders Other (Per physical therapy) - Rehabiliation Orders Rehab Potential: Fair Rehab Orders: Evaluation for Physical Therapy, Evaluation for Occupational Therapy - Diet Orders Regular CERTIFICATION: I certify that the transfer of the above named patient to an Extended Care Facility is necessary for the continuing treatment of the diagnosis listed. The above information is true and accurate reflection of patient's current condition. Confidential - Redisclosure prohibited without a patient's written consent.
[2018-01-02 19:46] VITALS: BP 139/93
[2018-01-02] MEDS ORDERED: Aminoglycoside Consult 1 EACH MC ONE (20:11)
== END 2018-01-02 20:12 | DRG 560 ==
LOC: 3BNU → 3ANU 12-31 03:10
PROVIDERS: ADMIT Pediatrics; ATTEND Registered Nurse